=== PATIENT | female | born 1950 | race Caucasian/White ===

== ENCOUNTER 2024-03-22 10:41 | Outpatient (OUT) | payer MEDICARE, SELFPAY ==
[2024-03-22 11:09] LABS: Basophils Absolute Auto 0.1 10^3/uL (0.0-0.1); Basophils Percent Auto 0.4 % (0.2-2.0); Eosinophils Percent Auto 0.3 % (0.9-7.0); Hemoglobin 13.7 g/dL (12.0-16.0); Immature Granulocytes Abs Auto 0.05 10^3/uL (0.00-0.03); Immature Granulocytes Pct Auto 0.4 % (0.0-0.5); Lymphocytes Percent Auto 7.4 % (20.5-60.0); Mean Corpuscular HGB Conc 32.6 g/dL (29.9-35.2); Mean Corpuscular Hemoglobin 28.8 pg (26.7-34.0); Mean Corpuscular Volume 88.2 fL (81.0-99.0); Mean Platelet Volume 9.8 fL (9.5-13.5); Monocytes Absolute Auto 0.8 10^3/uL (0.3-0.8); Monocytes Percent Auto 6.4 % (1.7-12.0); Neutrophils Percent Auto 85.1 % (43.0-75.0); Platelet Count 219 10^3/uL (150-450); Red Blood Count 4.76 10^6/uL (4.20-5.40); Red Cell Distribution Width 13.3 % (11.0-15.0); White Blood Count 12.9 10^3/uL (4.0-11.0)
[2024-03-22 12:13] LABS: Alanine Aminotransferase 24 U/L (14-59); Albumin Globulin Ratio 1.2; Albumin Level 3.8 g/dL (3.4-5.0); Alkaline Phosphatase 73 U/L (46-116); Anion Gap 14.4; Aspartate Amino Transferase 13 U/L (15-37); Bilirubin Direct 0.1 mg/dL (0.0-0.2); Bilirubin Total 0.7 mg/dL (0.2-1.0); Calcium 9.4 mg/dL (8.5-10.1); Carbon Dioxide 27.4 mmol/L (21.0-32.0); Chloride 103 mmol/L (98-107); Chol HDL Ratio 2.2; Cholesterol 144 mg/dL (<=200); Estimated GFR (African America >60 (>=60); Estimated GFR (Non-African Ame >60 (>=60); Globulin 3.3 g/dL; Glucose 112 mg/dL (74-106); HDL Cholesterol 64 mg/dL (40-60); Potassium 3.8 mmol/L (3.5-5.1); Sodium 141 mmol/L (136-145); Thyroid Stimulating Hormone 1.154 uIU/mL (0.358-3.740); Total Protein 7.1 g/dL (6.4-8.2); Triglycerides 100 mg/dL (<=150)
[2024-03-22 12:41] LABS: Estimated Average Glucose 120 mg/dL; Glycohemoglobin A1C 5.8 % (4.5-6.2)
== END 2024-03-22 10:42 | disposition home or self-care (01) ==
LOC: LAB 10:47
PROVIDERS: PCP Family Medicine; Visit Provider Family Medicine
DX: E78.5 Hyperlipidemia, unspecified (principal); I10 Essential (primary) hypertension; R73.03 Prediabetes; Z79.899 Other long term (current) drug therapy; E66.9 Obesity, unspecified
CPT/HCPCS: 36415; 80048; 80061; 80076; 83036; 84443; 85025

== ENCOUNTER 2025-03-28 10:29 | Outpatient (OUT) | payer MEDICARE, SELFPAY ==
--- OUTSIDE RECORDS SUMMARY | 2025-03-28 05:58 | XMS_ITS | Continuity of Care Document ---
Author Organization [facility] Address [address] [place] [address] Phone Care Team Providers Care Stacker Straightener Name Role Phone Waldemar Mcmullen MD Primary Care Provider Waldemar Mcmullen MD Attending Provider Care Teams Patient Care Team Team Status: Active Member Role Status Dates Waldemar Mcmullen MD Primary Care Provider Active Patient Care Team Team Status: Inactive Member Role Status Dates Waldemar Mcmullen MD Primary Care Provider Active S tart: March 28, 2025 End: March 28, 2025 Waldemar Mcmullen MD Attending Provider Active Star t: March 28, 2025 End: March 28, 2025 Chief Complaint and Reason for Visit Reason for Visit Admit Date Benign essential hypertension March 28, 2025 8:31am Class 1 obesity due to exces s calories with serious comorbidity and body ma March 28, 2025 8:31am Dyslipidemia March 28, 2025 8:31am Encounter for long-term (current) use of medications March 28, 2025 8:31am Medicare annual wellness visit, subseque nt March 28, 2025 8:31am Prediabetes March 28, 2025 8:31am Allergies, Adverse Reactions, Alerts Allergen Type Severity Reaction Last Updated Verified Status No Known Allergies Allergy Unknown Septem 2024 8:56am Yes Active Social History Smoking Status Status Start Date End Date Date of Observa tion Never smoked tobacco (finding) March 28, 2025 8:57am Observation Status Observation Response Date of Response Legal Sex Female (finding) Sex Assigned At Female 1950 Problems Active Problems Medical Problem Onset Date Status Medicare annual wellness visit, subsequent Unkno wn Active Allergic rhinitis due to pollen Unknown Active Benign essential hypertension Unknown Ac tive Dyslipidemia Unknown Active Encounter for long-term (current) use of medicat ions Unknown Active Prediabetes Unknown Active Class 1 obesity due to exces s calories with serious comorbidity and body mass index (BMI) of 33.0 to 33.9 in adult Unknown Active Inactive/Resolved Problems Medical Problem Onset Date Status Class 2 severe obesity due t o excess calories with serious comorbidity and body mass index (BMI) of 38.0 to 38.9 in adult Unknown Resolved Medications Medication Status Dose Units Route Directions Qty Days St art Date Stop Date End Date Instructions Adherence Aspirin (Adult Low Dose Aspirin) 81 mg tablet,patrick yed release (DR/EC) Active 81 MG PO Daily 2024 12:00a m Complies with drug therapy Simvastatin 20 mg tablet Active 20 MG PO Daily at bedtime 2024 12:00a m Complies with drug therapy Olmesartan 20 mg tablet Active 20 MG PO Daily 2024 12:00a m Complies with drug therapy Hydrochloro thiazide 12.5 mg tablet Active 12.5 MG PO Daily 2024 12:00a m Complies with drug therapy Vital Signs Vital Reading Result Reference Range Collection Date/Time Height 58 [in_i] March 28, 2025 8:55am Weight 72.74 kg March 28, 2025 8:55am Body Temperature 98.5 [degF] 97.6-99.0 March 082024 8:55am Heart Rate 65 /min 60-100 March 28, 2025 8:55am Respiratory rate 18 /min 12-24 March 082024 8:55am BP Systolic 160 mm[Hg] 100-140 March 28, 2025 8:55am BP Diastolic 90 mm[Hg] 60-100 March 28, 2025 8:55am BMI (Body Mass Index) 33.5 kg/m2 2024 8:55am Advance Directives Advance Directive Response Recorded Date/ Time Advance Directives No March 8:26am Insurance Providers Guarantor Krystina Balderrama Address [address] [place] [address] [place] [id number] Contact Info. Home Phone: Payer Policy Id Subscriber's Name Subscriber Id Effectiv e Date Expiration Date Medicare [id number] Krystina Balderrama [id number] AARP Medicare Advantage [facility] [id number] Krystina Balderrama [id number] Encounters Encounter Location(s) Arrival/Admit Date Discharge/Depart Date Provider(s) Departed Physician/Prov ider Office Visit -[facility] [place] March 28, 2025 8:31am March 28, 2025 9:57am Waldemar Mcmullen MD Recent Diagnosis Onset Date Admit Date Benign essential hypertension Unknown Se ptember 2024 8:31am Class 1 obesity due to exces s calories with serious comorbidity and body ma Unknown March 28, 2025 8 :31am Dyslipidemia Unknown March 28, 2025 8:31am Encounter for long-term (cur rent) use of medications Unknown March 28, 2025 8:31am Medicare annual wellness visit, subsequent Unkno wn March 28, 2025 8:31am Prediabetes Unknown March 28, 2025 8:31am Assessments Diagnosis Onset Date Resolution Status Admit Date Benign essential hypertension acute March 28, 2025 8:31am Class 1 obesity due to exces s calories with serious comorbidity and body ma acute Septembe r 2024 8:31am Dyslipidemia acute March 282024 8:31am Encounter for long-term (current) use of medications acute Sep tember 2024 8:31am Medicare annual wellness visit, subsequent acute March 8:31am Prediabetes acute March 8:31am Plan of Treatment Future Tests Future scheduled test information is unavailable Pending Tests Test Name Ordered Date Scheduled Date Comprehensive Metabolic Panel March 28 9:22am Future Visits Future appointment information is unavailable Referrals to Other Providers Referral information is unavailable Future Procedures Procedure Name Ordered Date Scheduled Date A1C with Estimated Average Glu March 28 025 9:22am Complete Blood Count Auto Diff March 28 9:22am Lipid Panel March 28, 2025 9:22am Thyroid Stimulating Hormone March 28, 2025 9:22am Future Medications Future medication information is unavailable Patient Instructions Patient instructions are unavailable
--- OUTSIDE RECORDS SUMMARY | 2025-03-28 10:40 | XMS_ITS | Encounter Summary ---
Author Organization [facility] Address [address] [place] [address] Care Team Providers Care Crib Clerk Name Role Phone Waldemar Mcmullen MD Primary Care Provider [phone] Waldemar Mcmullen MD Primary Care Provider [phone] Waldemar Mcmullen MD Unavailable Encounter Details Date Type Department Care Team (Late st Contact Info) Description 06/16/2023 External Result Encounter [facility] [address] [place] [address] Waldemar Mcmullen MD [address] [place] [id number] Social History Tobacco Use Types Packs/Day Years Used Date Smoking Tobacco: Never Assessed Comments Unknown Sex and Gender Information Value Date Recorded Sex Assigned at Not on file Legal Sex Female 6:48 PM EDT Gender Identity Not on file Sexual Orientation Not on file documented as of this encounter Plan of Treatment Not on file documented as of this encounter Procedures Procedure Name Priority Date/Time Associated Diagnosis Comments BI MAMMOGRAM SCREENING TOMOSYNTHESIS BILATERAL 06/16/2023 11:32 AM EST documented in this encounter Results * Bilateral screening mammogram with tomosynthesis (06/16/2023 11:32 AM EST) Anatomical Region Laterality Modality Breast Bilateral Mammography 06/16/2023 11:3 2 AM EST Narrative 06/16/2023 11:31 AM EST THIS EXAM WAS PERFORMED AT [facility] MAMM SCREENING BILATERAL W CAD 06/13/2023 2:19 PM HISTORY: Encounter for screening mammogram for malignant neoplasm of breast TECHNIQUE: Bilateral CC and MLO 3-D tomosynthesis with C-views performed. Computer-aided detection was used in the interpretation of this examination. COMPARISON: Mammograms dating back to 05/16/2017 FINDINGS: Breast density: There are scattered areas of fibroglandular density. No suspicious calcifications, masses or architectural distortion. IMPRESSION: * No mammographic evidence of malignancy. ASSESSMENT- BI-RADS 1 - Negative Recommendation: Routine screening mammogram in 1 year Finalized by Stefany Pineda MD on 06/16/2023 11:31 AM 1 b MAMM 1 YR Procedure Note Radiology, Radiologist, MD - 07/01/2023 [facility] S[facility] BILATERAL W CAD 06/13/2023 2:19 PM HISTORY: Encounter for screening mammogram for malignant neoplasm ofbreast TECHNIQUE: Bilateral CC and MLO 3-D tomosynthesis with C-views performed.Computer-aided detection was used in the interpretation of thisexamination. COMPARISON: Mammograms dating back to 05/16/2017 FINDINGS: Breast density: There are scattered areas of fibroglandular density. No suspicious calcifications, masses or architectural distortion. IMPRESSION: * No mammographic evidence of malignancy. ASSESSMENT- BI-RADS 1 - Negative Recommendation: Routine screening mammogram in 1 year Finalized by Stefany Pineda MD on 06/16/2023 11:31 AM 1 b MAMM 1 YR Waldemar Mcmullen MD IMG BI PROCEDURES Final Result documented in this encounter Visit Diagnoses Not on filedocumented in this encounter Care Teams Crib Clerk Relationship Specialty Start Date End Date Waldemar Mcmullen MD PCP - General Family Medicine 03/07/23 08/18/23 Waldemar Mcmullen MD PCP - General Family Medicine 08/19/23 Waldemar Mcmullen MD [address] [place] [address] PCP - ACO Reach 08/13/24 documented as of this encounter
--- OUTSIDE RECORDS SUMMARY | 2025-03-28 10:40 | XMS_ITS | Clinical Summary ---
Author Organization [facility] Address [id number] [place] [address] Care Team Providers Care Manager Of Applications Development Name Role Phone Waldemar Mcmullen MD Primary Care Provider [phone] Immunizations Immunization Administration Dates Next Due COVID-19, mRNA, LNP-S, PF, 100mcg/0.5mL Dose ,09/01/2020 Family History Medical History Relation Name Comments Breast cancer Neg Hx Social History Tobacco Use Types Packs/Day Years Used Date Smoking Tobacco: Never Assessed Childcare Answer Date Recorded Childcare Unknown 12/16/2018 Employment Answer Date Recorded Employment Unknown 12/16/2018 Purpose - Life Answer Date Recorded Purpose and direction in life Unknown Comments No Sex and Gender Information Value Date Recorded Sex Assigned at Not on file Legal Sex Female 11:31 AM EDT Gender Identity Not on file Sexual Orientation Not on file Last Filed Vital Signs Vital Sign Reading Time Taken Comments Blood Pressure - - Pulse - - Temperature - - Respiratory Rate - - Oxygen Saturation - - Inhaled Oxygen Concentration - - Weight 79.4 kg (175 lb) 07/15/2024 1:09 PM EST Height 147.3 cm (4' 10 ) 07/15/2024 1:09 PM EST Body Mass Index 36.58 07/15/2024 1:09 PM EST Plan of Treatment Health Maintenance Due Date Last Done Comments Depression Screening 1962 Tobacco Screening 1962 Adult BMI Follow Up Plan 1968 DTaP,Tdap and Td Vaccines (1 - Tdap) 1969 Colonoscopy 11/27/1995 Fall Risk Screening 11/27/2015 COVID-19 Vaccine (8 - 2024-2 5 season) 2025 04/25/2024, 05/08/2023, 06/15/2022, Additional history exists Influenza Vaccine 03/07/2025 04/25/2024, , 04/16/2022, Additional history exists Adult BMI Screening 07/15/2025 07/15/2024 Zoster (Shingles) Vaccine Completed 10/07/2023, Medical Devices Not on file Insurance MEDICARE [facility] Care Teams Manager Of Applications Development Relationship Specialty Start Date End Date Waldemar Mcmullen MD PCP - General 05/16/17
--- OUTSIDE RECORDS SUMMARY | 2025-03-28 10:40 | XMS_ITS | Clinical Summary ---
Author Organization [facility] Address [address] [place] [address] Care Team Providers Care Quality Internship Name Role Phone Waldemar Mcmullen MD Primary Care Provider [phone] Waldemar Mcmullen MD Unavailable Allergies No known active allergies Medications aspirin 81 MG EC tablet Take 1 tablet by mouth in the morning. Active olmesartan (BENIcar) 20 MG tabletIndications :Essential (primary) hypertension,Nic gn essential hypertension TAKE 1 TABLET BY MOUTH EVERY DAY 90 tablet 3 5 Active simvastatin (Zocor) 20 MG tabletIndications :Hyperlipidemia, unspecified TAKE 1 TABLET BY MOUTH EVERYDAY AT BEDTIME 90 tablet 3 5 Active hydroCHLOROthiazi de (HYDRODiuril) 12.5 MG tabletIndications :Essential (primary) hypertension,Nic gn essential hypertension TAKE 1 TABLET BY MOUTH EVERY DAY 90 tablet 3 5 Active Active Problems Problem Noted Date Diagnosed Date Encounter for long-term current use of medicatio n 03/22/2024 Essential hypertension, benign 09/30/2023 Assessment & Plan (09/20/2024 9:43 AM EDT): BP elevated today and monitor PRN. Assessment & Plan (03/22/2024 10:16 AM EDT): BP okay today and monitor PRN. Assessment & Plan (09/30/2023 11:17 AM EDT): BP slightly elevated today but normal at home and monitor PRN. Allergic rhinitis due to pollen 09/30/2023 Assessment & Plan (09/20/2024 9:43 AM EDT): Symptoms controlled with medication and continue. Assessment & Plan (03/22/2024 10:16 AM EDT): Symptoms controlled with medication and continue. Assessment & Plan (09/30/2023 11:17 AM EDT): Symptoms controlled with medication and continue. Dyslipidemia 09/30/2023 Prediabetes 09/30/2023 Class 2 severe obesity due t o excess calories with serious comorbidity and body mass index (BMI) of 38.0 to 38.9 in adult 09/30/2023 Assessment & Plan (09/20/2024 9:43 AM EDT): Discussed proper diet and regular aerobic exercise. Recommend Weight Watchers and need to limit calories and smaller portions. Need to increase activity and regular aerobic exercise several days a week for 30 minutes at a time. Assessment & Plan (09/30/2023 11:17 AM EDT): Discussed proper diet and regular aerobic exercise. Recommend Weight Watchers and need to limit calories and smaller portions. Need to increase activity and regular aerobic exercise several days a week for 30 minutes at a time. Encounters Date Type Department Care Team Description 02/19/2025 Refill [facility] [address] [place] [address] Waldemar Mcmullen MD Essential (primary) hypertension ; Benign essential hypertension ; Hyperlipidemia, unspecified from Last 3 Months Family History Medical History Relation Name Comments Uterine cancer Mother Relation Name Status Comments Mother Social History Tobacco Use Types Packs/Day Years Used Date Smoking Tobacco: Never Comments Unknown Sex and Gender Information Value Date Recorded Sex Assigned at Not on file Legal Sex Female 6:48 PM EDT Gender Identity Not on file Sexual Orientation Not on file Last Filed Vital Signs Vital Sign Reading Time Taken Comments Blood Pressure 180/90 09/20/2024 9:17 AM EDT Pulse 65 09/20/2024 9:17 AM EDT Temperature 36.3 C (97.3 F) 09/20/2024 9:17 AM EDT Respiratory Rate 20 09/20/2024 9:17 AM EDT Oxygen Saturation 98% 09/20/2024 9:17 AM EDT Inhaled Oxygen Concentration - - Weight 77.1 kg (170 lb) 09/20/2024 9:17 AM EDT Height 142.2 cm (4' 8 ) 09/20/2024 9:17 AM EDT Body Mass Index 38.11 09/20/2024 9:17 AM EDT Plan of Treatment Health Maintenance Due Date Last Done Comments CT Colonography 1950 Colonoscopy 1950 FIT-DNA 1950 FIT 1950 FOBT 1950 Medicare Annual Wellness (AWV) 1950 Sigmoidoscopy 1950 Influenza Vaccine (#1) 2025 , 05/08/2023, 04/16/2022, Additional history exists Mammogram 07/15/2025 07/15/2024, 03/2025, 06/16/2023, Additional history exists Colorectal Cancer Screening 09/20/2025 Postponed from 1950 (Patient Refused) Pneumococcal Vaccine: 65+ Years Completed 06/18/2018, 06/09/2017 Procedures Procedure Name Priority Date/Time Associated Diagnosis Comments BI MAMMOGRAM SCREENING TOMOSYNTHESIS BILATERAL 07/15/2024 1:36 PM EST from Last 3 Months or Most Recently Relevant to Health Maintenance Results * Bilateral screening mammogram with tomosynthesis (07/15/2024 1:36 PM EST) Anatomical Region Laterality Modality Breast Bilateral Mammography 07/15/2024 1:36 PM EST Narrative 07/15/2024 1:35 PM EST THIS EXAM WAS PERFORMED AT [facility] [place] 1950 [id number] EXAM: MAMM SCREENING BILATERAL W CAD, 07/15/2024 1:08 PM CLINICAL INDICATIONS: Screening, Visit for screening mammogram COMPARISON: 06/13/2023 and earlier TECHNIQUE: Bilateral digital tomosynthesis MLO and CC views of the breasts were obtained, with creation of synthetic 2D views. Computer aided detection was utilized. FINDINGS: There are scattered areas of fibroglandular density. There are no suspicious masses, calcifications, or areas of architectural distortion. IMPRESSION: No mammographic evidence of malignancy. BI-RADS: BI-RADS 1 - Negative RECOMMENDATION: Routine screening mammogram in 1 year. RISK ASSESSMENT: TC Lifetime risk: 4.95%. The patient's reported personal and family medical history was used calculate their Tyrer-Cuzick lifetime risk of malignancy. Scores less than 20% are not considered high risk per ACR guidelines and patient should continue with the above recommendation. Finalized by Giovanni Castrejon MD on 07/15/2024 1:35 PM 1 b MAMM 1 YR [facility] Accredited Performing Facility: [facility] - Mammography/DEXA Imaging [address] [id number] Procedure Note Radiology, Radiologist, MD - 07/15/2024 THIS EXAM WAS PERFORMED AT [facility] 1950 [id number] EXAM: MAMM SCREENING BILATERAL W CAD, 07/15/2024 1:08 PM CLINICAL INDICATIONS: Screening, Visit for screening mammogram COMPARISON: 06/13/2023 and earlier TECHNIQUE: Bilateral digital tomosynthesis MLO and CC views of the breastswere obtained, with creation of synthetic 2D views. Computer aideddetection was utilized. FINDINGS: There are scattered areas of fibroglandular density. There are no suspicious masses, calcifications, or areas of architecturaldistortion. IMPRESSION: No mammographic evidence of malignancy. BI-RADS: BI-RADS 1 - Negative RECOMMENDATION: Routine screening mammogram in 1 year. RISK ASSESSMENT: TC Lifetime risk: 4.95%. The patient's reported personal and family medical history was usedcalculate their Tyrer-Cuzick lifetime risk of malignancy. Scores less than20% are not considered high risk per ACR guidelines and patient shouldcontinue with the above recommendation. Finalized by Giovanni Castrejon MD on 07/15/2024 1:35 PM 1 b MAMM 1 YR [facility] Accredited Performing Facility: [facility] - Mammography/DEXA Imaging [address] [place] [address] Waldemar Mcmullen MD IMG BI PROCEDURES Final Result from Last 3 Months or Most Recently Relevant to Health Maintenance Insurance MEDICARE [facility] Care Teams Quality Internship Relationship Specialty Start Date End Date Waldemar Mcmullen MD PCP - General Family Medicine 08/19/23 Waldemar Mcmullen MD [address] [place] [address] PCP - ACO Reach 08/13/24
--- OUTSIDE RECORDS SUMMARY | 2025-03-28 10:40 | XMS_ITS | Encounter Summary ---
Author Organization [facility] Address [address] [place] [address] Care Team Providers Care Craft Artist Name Role Phone Waldemar Mcmullen MD Primary Care Provider [phone] Waldemar Mcmullen MD Primary Care Provider [phone] Waldemar Mcmullen MD Unavailable Encounter Details Date Type Department Care Team (Late st Contact Info) Description 08/11/2023 Orders Only [facility] [address] [place] [address] Waldemar Mcmullen MD [address] [place] [address] Social History Tobacco Use Types Packs/Day Years [...] Procedure Name Priority Date/Time Associated Diagnosis Comments MAMM BILATERAL DIAG W/CAD (D) Routine 06/13/2023 12:32 PM EST documented in this encounter Results * MAMM BILATERAL DIAG W/CAD (D) (06/13/2023 12:32 PM EST) Anatomical Region Laterality Modality Radiographic Graciela ging Waldemar Mcmullen MD IMG XR PROCEDURES Final Result documented in this encounter Visit Diagnoses Not on filedocumented in this encounter Care Teams Craft Artist Relationship Specialty Start Date End Date Waldemar Mcmullen MD PCP - General Family Medicine 03/07/23 08/18/23 Waldemar Mcmullen MD PCP - General Family Medicine 08/19/23 Waldemar Mcmullen MD [address] [place] [address] PCP - ACO Reach 08/13/24 documented as of this encounter
--- OUTSIDE RECORDS SUMMARY | 2025-03-28 10:40 | XMS_ITS | Encounter Summary ---
Author Organization [facility] Address [address] [place] [address] Care Team Providers Care Weight Loss Physician Name Role Phone Waldemar Mcmullen MD Primary Care Provider [phone] Waldemar Mcmullen MD Unavailable Encounter Details Date Type Department Care Team (Late st Contact Info) Description 07/15/2024 External Result Encounter [facility] [address] [place] [address] Waldemar Mcmullen MD [address] [place] [address] Social History Tobacco Use Types Packs/Day Years [...] SCREENING TOMOSYNTHESIS BILATERAL 07/15/2024 1:36 PM EST documented in this encounter Results * Bilateral screening mammogram with tomosynthesis (07/15/2024 1:36 PM EST) Anatomical Region Laterality Modality Breast Bilateral Mammography 07/15/2024 1:36 PM EST Narrative 07/15/2024 1:35 PM EST THIS EXAM WAS PERFORMED AT [facility] [place] [place] 1950 [id number] EXAM: MAMM SCREENING BILATERAL W CAD, 07/15/2024 [...] 1:35 PM 1 b MAMM 1 YR FDA Accredited Performing Facility: [facility] - Mammography/DEXA Imaging [address] [facility] [id number] Procedure Note Radiology, Radiologist, MD - 07/15/2024 THIS EXAM WAS PERFORMED AT [facility] 1950 [id number] EXAM: MAMM SCREENING BILATERAL W CAD, 07/15/2024 [...] 1:35 PM 1 b MAMM 1 YR FDA Accredited Performing Facility: [facility] - Mammography/DEXA Imaging [address] [facility] [address] Waldemar Mcmullen MD IMG BI PROCEDURES Final Result documented in this encounter Visit Diagnoses Not on filedocumented in this encounter Care Teams Weight Loss Physician Relationship Specialty Start Date End Date Waldemar Mcmullen MD PCP - General Family Medicine 08/19/23 Waldemar Mcmullen MD [address] [place] [address] PCP - ACO Reach 08/13/24 documented as of this encounter
--- OUTSIDE RECORDS SUMMARY | 2025-03-28 10:42 | XMS_ITS | CCD ---
Author Organization [facility] Care Team Providers Care Loom Fixer Supervisor Name Role Phone DR WALDEMAR GUSTAFSON Consulting Unavailable SJ, DR WALDEMAR Baker Attending Unavailable SJ, DR WALDEMAR Baker Admitting Unavailable SJ, DR WALDEMAR Baker Primary Care Unavailable Waldemar Gustafson MD Primary Care Provider WALDEMAR GUSTAFSON Referring Unavailable WALDEMAR GUSTAFSON Primary Care Unavailable WALDEMAR GUSTAFSON Attending Unavailable WALDEMAR GUSTAFSON Attending Unavailable SJ, WALDEMAR Attending Unavailable Waldemar Gustafson MD Primary Care Provider Waldemar Gustafson MD Attending Provider Medications Current Medications Medication Drug Class(es) Dates Sig (Normalized) Sig (Original) aspirin 81 mg delayed release oral tablet (5 sources) Platelet Aggregation Inhibitor, Nonsteroidal Anti-inflammatory Drug Start: 03-25-2025 Aspirin (Adult Low Dose Aspirin) 81 mg tablet,delayed release (DR/EC) Active 81 MG PO Daily March 25, 2025 12:00am Complies with drug therapy take 1 tablet by mouth in the mo rning aspirin 81 MG EC tablet Take 1 tablet by mouth in the morning. Active hydroCHLOROthiazide 12.5 mg oral tablet (5 sources) Thiazide Diuretic Start: 03-25-2025 take 1 tablet by mouth once daily Hydrochlorothiazide 12.5 mg tablet Active 12.5 MG PO Daily March 25, 2025 12:00am Complies with drug therapy Start: 03-01-2024 take 1 tablet by bharat th once daily hydroCHLOROthiazide (HYDRODiuril) 12.5 MG tablet Indications: Essential (primary) hypertension (CMS/HCC) , Benign essential hypertension (CMS/HCC) TAKE 1 TABLET BY MOUTH EVERY DAY 90 tablet 3 03/01/2024 Active olmesartan medoxomil 20 mg oral tablet (5 sources) Angiotensin 2 Receptor Tami Start: 03-25-2025 take 1 tablet by mouth once daily Olmesartan 20 mg tablet Active 20 MG PO Daily March 25, 2025 12:00am Complies with drug therapy Start: 03-01-2024 take 1 tablet by bharat th once daily olmesartan (BENIcar) 20 MG tablet Indications: Essential (primary) hypertension (CMS/HCC) , Benign essential hypertension (CMS/HCC) TAKE 1 TABLET BY MOUTH EVERY DAY 90 tablet 3 03/01/2024 Active simvastatin 20 mg oral tablet (5 sources) HMG-CoA Reductase Inhibitor Start: 03-25-2025 take 1 tablet by mouth once daily at bedtime Simvastatin 20 mg tablet Active 20 MG PO Daily at bedtime March 25, 2025 12:00am Complies with drug therapy Start: 03-01-2024 take 1 tablet by bharat th once daily at bedtime simvastatin (Zocor) 20 MG tablet Indications: Hyperlipidemia, unspecified (CMS/HCC) TAKE 1 TABLET BY MOUTH EVERYDAY AT BEDTIME 90 tablet 3 03/01/2024 Active Problems Problem Classification Problem Date Documented Da te Episodic/Chronic Diabetes mellitus without complication (9 sources) Prediabetes; Translations: [Prediabetes] Onset: 10-11-2022 03-22-2024 Episodic Disorders of lipid metabolism (9 sources) Hyperlipidemia, unspecified; Translations: [Dyslipidemia] Onset: 10-11-2022 03-22-2024 Chronic Essential hypertension (12 sources) Essential (primary) hypertension; Translations: [Benign essential hypertension] Onset: 10-03-2022 Chronic Other aftercare (1 source) Other adjunct faculty for medical terminology (current) drug therapy; Translations: [OTH LONG-TERM CURRENT DRUG THERAPY] Onset: 10-11-2022 Episodic Other aftercare (5 sources) Patient encounter status; Translations: [Other nursing home (current) drug therapy] Onset: 03-22-2024 03-22-2024 Episodic Other aftercare (2 sources) Long-term current use of drug therapy; Translations: [Other nursing home (current) drug therapy] 03-28-2025 Episodic Other nutritional; endocrine; and metabolic disorders (1 source) Body mass index (BMI) 40.0-44.9, adult; Translations: [BODY MASS INDEX BMI 40.0-44.9 ADULT] Onset: 04-07-2023 Chronic Other nutritional; endocrine; and metabolic disorders (1 source) Morbid (severe) obesity due to excess calories; Translations: [MORBID SEVERE OBES D/T EXCESS RADHA] Onset: 10-11-2022 Chronic Other nutritional; endocrine; and metabolic disorders (8 sources) Body mass index 30+ - obesity; Translations: [Obesity, unspecified] Onset: 09-30-2023 03-22-2024 Chronic Other nutritional; endocrine; and metabolic disorders (1 source) Severe obesity; Translations: [Class 2 severe obesity due to excess calories with serious comorbidity and body mass] 03-28-2025 Chronic Other nutritional; endocrine; and metabolic disorders (2 sources) Obesity caused by energy imbalance; Translations: [Class 1 obesity due to excess calories with serious comorbidity and body mass index (] 03-28-2025 Chronic Other screening for suspected conditions (not mental disorders or infectious disease) (1 source) Encounter for screening mammogram for malignant neoplasm of breast; Translations: [Encounter for screening mammogram for malignant neoplasm of breast] Onset: 07-15-2024 Episodic Other upper respiratory disease (7 sources) Allergic rhinitis due to pollen; Translations: [Allergic rhinitis due to pollen] Onset: 09-30-2023 03-22-2024 Chronic Results Test Name Value Interpretation Reference Range Facility 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 6 Finalized by Giovanni Castrejon MD on 07/15/2024 1:35 PM 1 b MAMM 1 YR Normal [facility] ALL CBC WITH AUTO DIFFon BASOPHILS ABSOLUTE AUTO 0.1 [facility] Basophils/100 WBC (Bld) 0.4 % 0.2 - 2.0 % [facility] Eosinophils/100 WBC (Bld) 0.3 % Low 0.9 - 7.0 % [facility] Erythrocyte distribution width (RBC) [Ratio] 13.3 % 11.0 - 15.0 % [facility] Hematocrit (Bld) [Volume fraction] 42.0 % 36.0 - 48.0 % [facility] Hemoglobin (Bld) [Mass/Vol] 13.7 g/dL 12.0 - 16.0 g/dL [facility] IMMATURE GRANULOCYTES ABS AUTO 0.05 High [facility] Immature granulocytes/100 WBC (Bld) 0.4 % 0.0 - 0.5 % [facility] Interpretation and review of laboratory results Abnormal [facility] LYMPHOCYTES ABSOLUTE AUTO 1.0 Low [facility] Lymphocytes/100 WBC (Bld) 7.4 % Low 20.5 - 60.0 % [facility] MCH (RBC) [Entitic mass] 28.8 pg 26.7 - 34.0 pg [facility] MCHC (RBC) [Mass/Vol] 32.6 g/dL 29.9 - 35.2 g/dL [facility] MCV (RBC) [Entitic vol] 88.2 fL 81.0 - 99.0 fL [facility] MONOCYTES ABSOLUTE AUTO 0.8 [facility] Monocytes/100 WBC (Bld) 6.4 % 1.7 - 12.0 % [facility] NEUTROPHILS ABSOLUTE AUTO 11.0 High [facility] Neutrophils/100 WBC (Bld) 85.1 % High 43.0 - 75.0 % [facility] Platelet mean volume (Bld) [Entitic vol] 9.8 fL 9.5 - 13.5 fL [facility] EO # 0.0 [facility] PLT 219 [facility] RBC 4.76 [facility] WBC 12.9 High [facility] CBC AUTO DIFFon 10-03-2022 BASO # 0.1 103/ul Normal 0.0-0.1 [facility] Comment on above: Performed By: #### C BC #### [facility] [address] [place] [address] Dr. Jaky Avelar Basophils/100 WBC (Bld) 0.8 % Normal 0.2-2.0 [facility] Comment on above: Performed By: #### C BC #### [facility] [address] [place] [address] Dr. Jaky Avelar EO # 0.1 103/ul Normal 0.0-0.7 [facility] Comment on above: Performed By: #### C BC #### [facility] [address] [place] [address] Dr. Jaky Avelar Eosinophils/100 WBC (Bld) 1.2 % Normal 0.9-7.0 [facility] Comment on above: Performed By: #### C BC #### [facility] [address] [place] [address] Dr. Jaky Avelar Erythrocyte distribution width (RBC) [Ratio] 13.4 % Normal 11.0-15.0 [facility] Comment on above: Performed By: #### C BC #### [facility] [address] [place] [address] Dr. Jaky Avelar Hematocrit (Bld) [Volume fraction] 43.0 % Normal 36.0-48.0 [facility] Comment on above: Performed By: #### C BC #### [facility] [address] [place] [address] Dr. Jaky Avelar Hemoglobin (Bld) [Mass/Vol] 13.8 g/dL Normal 12.0-16.0 [facility] Comment on above: Performed By: #### C BC #### [facility] [address] [place] [address] Dr. Jaky Avelar IG # 0.04 10e3/ul Critically high 0.00-0.03 [facility] Comment on above: Performed By: #### C BC #### [facility] [address] [place] [address] Dr. Jaky Avelar IG % 0.5 % Normal 0.0-0.5 [facility] Comment on above: Performed By: #### C BC #### [facility] [address] [place] [address] Dr. Jaky Avelar LYMPH # 1.2 103/ul Normal 1.2-3.8 [facility] Comment on above: Performed By: #### C BC #### [facility] [address] [place] [address] Dr. Jaky Avelar Lymphocytes/100 WBC (Bld) 14.5 % Critically low 20.5-60.0 [facility] Comment on above: Performed By: #### C BC #### [facility] [address] [place] [address] Dr. Jaky Avelar MANUAL DIFF REQ NO Normal [facility] Comment on above: Performed By: #### C BC #### [facility] [address] [place] [address] Dr. Jaky Avelar MCH (RBC) [Entitic mass] 28.1 pg Normal 26.7-34.0 [facility] Comment on above: Performed By: #### C BC #### [facility] [address] [place] [address] Dr. Jaky Avelar MCHC (RBC) [Mass/Vol] 32.1 g/dL Normal 29.9-35.2 [facility] Comment on above: Performed By: #### C BC #### [facility] [address] [place] [address] Dr. Jaky Avelar MCV (RBC) [Entitic vol] 87.6 fL Normal 81.0-99.0 [facility] Comment on above: Performed By: #### C BC #### [facility] [address] [place] [address] Dr. Jaky Avelar MONO # 0.6 103/ul Normal 0.3-0.8 [facility] Comment on above: Performed By: #### C BC #### [facility] [address] [place] [address] Dr. Jaky Avelar Monocytes/100 WBC (Bld) 6.6 % Normal 1.7-12.0 [facility] Comment on above: Performed By: #### C BC #### [facility] [address] [place] [address] Dr. Jaky Avelar NEUT # 6.5 103/ul Normal 1.4-6.5 [facility] Comment on above: Performed By: #### C BC #### [facility] [address] [place] [address] Dr. Jaky Avelra Neutrophils/100 WBC (Bld) 76.4 % Critically high 43.0-75.0 [facility] Comment on above: Performed By: #### C BC #### [facility] [address] [place] [address] Dr. Jaky Avelar Platelet mean volume (Bld) [Entitic vol] 10.2 fL Normal 9.5-13.5 [facility] Comment on above: Performed By: #### C BC #### [facility] [address] [place] [address] Dr. Jaky Avelar PLT 234 103/ul Normal 150-450 [facility] Comment on above: Performed By: #### C BC #### [facility] [address] [place] [address] Dr. Jaky Avelar RBC 4.91 106/ul Normal 4.20-5.40 [facility] Comment on above: Performed By: #### C BC #### [facility] [address] [place] [address] Dr. Jaky Avelar WBC 8.5 103/ul Normal 4.0-11.0 [facility] Comment on above: Performed By: #### C BC #### [facility] [address] [place] [address] Dr. Jaky Avelar GLYCOHEMOGLOBIN A1Con 2022 ADA RECOMMENDATION SEE BELOW Normal [facility] [place] Comment on above: Result Comment: ADA RECOMMENDED LIMIT 4.0 - 6.0 ADA THERAPEUTIC TARGET < 7.0 ACTION SUGGESTED > 7.0 Performed By: #### A 1C #### [facility] [address] [place] [address] Dr. Jaky Avelar Glucose [Mass/Vol] 126 mg/dL Normal [facility] [place] Comment on above: Performed By: #### A 1C #### [facility] [address] [address] [address] Jaky Avelar HbA1c (Bld) [Mass fraction] 6.0 % Normal 4.5-6.2 [facility] Comment on above: Performed By: #### A 1C #### [facility] [address] [address] [address] Jaky Avelar LIPID PROFILEon 10-03-2022 CHOL-HDL RATIO NORM SEE BELOW Normal [facility] Comment on above: Result Comment: 3.3 - 4.4 LOW RISK 4.4 - 7.1 AVERAGE RISK 7.1 - 11.0 MODERATE RISK >11.0 HIGH RISK Performed By: #### L IVER, LIPID, TSH, BMP #### [facility] [address] [place] [address] Dr. Jaky Avelar Cholesterol [Mass/Vol] 147 mg/dL Normal <=200 [facility] Comment on above: Performed By: #### L IVER, LIPID, TSH, BMP #### [facility] [address] [address] [address] Jaky Avelar Cholesterol in HDL [Mass/Vol] 54 mg/dL Normal 40-60 [facility] Comment on above: Performed By: #### L IVER, LIPID, TSH, BMP #### [facility] [address] [address] [address] Jaky Avelar Cholesterol in LDL [Mass/Vol] 63.6 mg/dL Normal [facility] Comment on above: Performed By: #### L IVER, LIPID, TSH, BMP #### [facility] [address] [address] [address] Jaky Avelar Cholesterol.total/Cho lesterol in HDL [Mass ratio] 2.7 {ratio} Normal [facility] Comment on above: Performed By: #### L IVER, LIPID, TSH, BMP #### [facility] [address] [address] [address] Jaky Avelar HDL NORMAL > or = 60 mg/dl - LOW CARDIOVASCULAR RISK <40 mg/dl - HIGH CARDIOVASCULAR RISK Normal [facility] Comment on above: Performed By: #### L IVER, LIPID, TSH, BMP #### [facility] [address] [address] [address] Jaky Avelar LDL CALC NORMAL SEE BELOW Normal [facility] Comment on above: Result Comment: <100 mg/dl OPTIMAL 100 - 129 mg/dl NEAR OR ABOVE OPTIMAL 130 - 159 mg/dl BORDERLINE HIGH 160 - 189 mg/dl HIGH >190 mg/dl VERY HIGH Performed By: #### L IVER, LIPID, TSH, BMP #### [facility] [address] [address] [address] Jaky Avelar Triglyceride [Mass/Vol] 147 mg/dL Normal <=150 [facility] Comment on above: Performed By: #### L IVER, LIPID, TSH, BMP #### [facility] [address] [place] [address] Dr. Jaky Avelar VLDL CALC 29.4 mg/dL Normal [facility] Comment on above: Performed By: #### L IVER, LIPID, TSH, BMP #### [facility] [address] [address] [address] Jaky Avelar LIVER PROFILEon 10-03-2022 Albumin [Mass/Vol] 3.7 g/dL Normal 3.4-5.0 [facility] [place] Comment on above: Performed By: #### L IVER, LIPID, TSH, BMP #### [facility] [address] [address] [address] Jaky Avelar Albumin/Globulin [Mass ratio] 1.0 {ratio} Normal [facility] Comment on above: Performed By: #### L IVER, LIPID, TSH, BMP #### [facility] [address] [address] [address] Jaky Avelar ALP [Catalytic activity/Vol] 89 U/L Normal 46-116 [facility] Comment on above: Performed By: #### L IVER, LIPID, TSH, BMP #### [facility] [address] [address] [address] Jaky Avelar ALT [Catalytic activity/Vol] 37 U/L Normal 14-59 [facility] Comment on above: Performed By: #### L IVER, LIPID, TSH, BMP #### [facility] [address] [place] [address] Dr. Jaky Avelar AST [Catalytic activity/Vol] 25 U/L Normal 15-37 [facility] Comment on above: Performed By: #### L IVER, LIPID, TSH, BMP #### [facility] [address] [place] [address] Dr. Jaky Avelar BILI, CONJUGATED 0.1 mg/dL Normal 0.0-0.2 [facility] Comment on above: Performed By: #### L IVER, LIPID, TSH, BMP #### [facility] [address] [place] [address] Dr. Jaky Avelar Bilirubin [Mass/Vol] 0.4 mg/dL Normal 0.2-1.0 [facility] Comment on above: Performed By: #### L IVER, LIPID, TSH, BMP #### [facility] [address] [place] [address] Dr. Jaky Avelar Globulin (S) [Mass/Vol] 3.6 g/dL Normal [facility] Comment on above: Performed By: #### L IVER, LIPID, TSH, BMP #### [facility] [address] [place] [address] Dr. Jaky Avelar Protein [Mass/Vol] 7.3 g/dL Normal 6.4-8.2 [facility] [place] Comment on above: Performed By: #### L IVER, LIPID, TSH, BMP #### [facility] [address] [place] [address] Dr. Jaky Avelar PROF CHEM 8 (BAS METB)on Anion gap [Moles/Vol] 15.5 mmol/L Normal [facility] Comment on above: Performed By: #### L IVER, LIPID, TSH, BMP #### [facility] [address] [place] [address] Dr. Jaky Avelar Calcium [Mass/Vol] 9.4 mg/dL Normal 8.5-10.1 [facility] [place] Comment on above: Performed By: #### L IVER, LIPID, TSH, BMP #### [facility] [address] [address] [address] Jaky Avelar Chloride [Moles/Vol] 104 mmol/L Normal 98-107 [facility] Comment on above: Performed By: #### L IVER, LIPID, TSH, BMP #### [facility] [address] [address] [address] Jaky Avelar CO2 [Moles/Vol] 24.4 mmol/L Normal 21.0-32.0 [facility] Comment on above: Performed By: #### L IVER, LIPID, TSH, BMP #### [facility] [address] [place] [address] Dr. Jaky Avelar Creatinine [Mass/Vol] 0.87 mg/dL Normal 0.55-1.02 [facility] Comment on above: Performed By: #### L IVER, LIPID, TSH, BMP #### [facility] [address] [address] [address] Jaky Avelar EGFR-AF GUATEMALAN >60 Normal >=60 [facility] Comment on above: Performed By: #### L IVER, LIPID, TSH, BMP #### [facility] [address] [place] [address] Dr. Jaky Avelar EGFR-NON AF GUATEMALAN >60 Normal >=60 [facility] Comment on above: Performed By: #### L IVER, LIPID, TSH, BMP #### [facility] [address] [address] [address] Jaky Avelar Glucose [Mass/Vol] 117 mg/dL Critically high 74-106 [facility] Comment on above: Performed By: #### L IVER, LIPID, TSH, BMP #### [facility] [address] [place] [address] Dr. Jaky Avelar Potassium [Moles/Vol] 3.9 mmol/L Normal 3.5-5.1 [facility] Comment on above: Performed By: #### L IVER, LIPID, TSH, BMP #### [facility] [address] [place] [address] Dr. Jaky Avelar Sodium [Moles/Vol] 140 mmol/L Normal 136-145 [facility] [place] Comment on above: Performed By: #### L IVER, LIPID, TSH, BMP #### [facility] [address] [address] [address] Jkay Avelar Urea nitrogen [Mass/Vol] 17.0 mg/dL Normal 7.0-18.0 [facility] Comment on above: Performed By: #### L IVER, LIPID, TSH, BMP #### [facility] [address] [address] [address] Jaky Avelar Urea nitrogen/Creatinine [Mass ratio] 19.5 mg/mg Normal [facility] Comment on above: Performed By: #### L IVER, LIPID, TSH, BMP #### [facility] [address] [address] [address] Jaky Avelar TSHon 10-03-2022 TSH 1.811 uIU/mL Normal 0.358-3.740 [facility] Comment on above: Performed By: #### L IVER, LIPID, TSH, BMP #### [facility] [address] [address] [address] Jaky Avelar Vital Signs Date Time Vital Sign Value Performing Clinician Facility 03-28-2025 08:55-0400 Body height 147.32 cm Waldemar Gustafson MD Work Phone: [facility] 03-28-2025 08:55-0400 Body mass index (BMI) [Ratio] 33.5 kg/m2 Waldemar Gustafson MD Work Phone: [facility] 03-28-2025 08:55-0400 Body temperature 98.5 [degF] Waldemar Gustafson MD Work Phone: [facility] 03-28-2025 08:55-0400 Body weight 72.74 kg Waldemar Gustafson MD Work Phone: [facility] 03-28-2025 08:55-0400 Diastolic blood pressure 90 mm[Hg] Waldemar Gustafson MD Work Phone: [facility] 03-28-2025 08:55-0400 Heart rate 65 /min Waldemar Gustafson MD Work Phone: [facility] 03-28-2025 08:55-0400 Respiratory rate 18 /min Waldemar Gustafson MD Work Phone: [facility] 03-28-2025 08:55-0400 Systolic blood pressure 160 mm[Hg] Waldemar Gustafson MD Work Phone: [facility] 03-22-2024 09:36-0400 Body mass index (BMI) [Ratio] 38.34 kg/m2 Waldemar Gustafson MD Work Phone: [facility] 03-22-2024 09:36-0400 Body temperature 97.5 [degF] Waldemar Gustafson MD Work Phone: [facility] 03-22-2024 09:36-0400 Body weight 77.56 kg Waldemar Gustafson MD Work Phone: [facility] 03-22-2024 09:36-0400 Diastolic blood pressure 80 mm[Hg] Waldemar Gustafson MD Work Phone: [facility] 03-22-2024 09:36-0400 Heart rate 76 /min Waldemar Gustafson MD Work Phone: [facility] 03-22-2024 09:36-0400 Respiratory rate 16 /min Waldemar Gustafson MD Work Phone: [facility] 03-22-2024 09:36-0400 SaO2% (BldA) [Mass fraction] 98 % Waldemar Gustafson MD Work Phone: [facility] 03-22-2024 09:36-0400 Systolic blood pressure 140 mm[Hg] Waldemar Gustafson MD Work Phone: [facility] Healthcare Encounters Encounter Date Encounter Type Care Provider Facility Start: 03-28-2025 End: 03-28-2025 ambulatory Waldemar Gustafson MD Work Phone: [facility] Work Phone: Start: 03-28-2025 End: 03-28-2025 Patient encounter procedure Waldemar Gustafson MD [facility] Work Phone: Start: 09-20-2024 End: 09-20-2024 ambulatory WALDEMAR GUSTAFSON Not Available Start: 07-15-2024 End: 07-15-2024 ambulatory WALDEMAR GUSTAFSON [facility] Start: 03-22-2024 End: 03-22-2024 Bamboo flowsheet Waldemar Gustafson MD Work Phone: [facility] Start: 03-22-2024 End: 03-22-2024 [facility] flowsheet Waldemar Gustafson MD Work Phone: [facility] Start: 03-22-2024 End: 03-22-2024 [facility] Result Encounter Waldeamr Gustafson MD Work Phone: [facility] Unsolicited Start: 03-22-2024 End: 03-22-2024 Office outpatient visit 15 minutes Waldemar Gustafson MD Work Phone: [facility] Comment on above: Essential hypertensi on, benign (CMS/HCC) (Primary Dx); Seasonal allergic rhinitis due to pollen; Obesity (BMI 30-39.9); Dyslipidemia (CMS/HCC); Encounter for long-term current use of medication; Prediabetes; Body mass index (BMI) 38.0-38.9, adult Start: 03-22-2024 End: 03-22-2024 ambulatory WALDEMAR GUSTAFSON Not Available Start: 09-30-2023 End: 09-30-2023 ambulatory WALDEMAR GUSTAFSON Not Available Start: 10-03-2022 End: 10-04-[address] WALDEMAR GUSTAFSON Facility:H1 Procedures Date Procedure Procedure Detail Performing Clinician Start: 03-22-2024 ALL CBC WITH AUTO DIFF Waldemar Gustafson MD Work Phone: Start: 06-16-2023 Mammography Waldemar matias MD Work Phone: Plan of Treatment Date Care Activity Detail Author Start: 09-20-2024 End: 09-20-2024 Patient encounter procedure 09/20/2024 9:00 AM EDT Office Visit [facility] [address] [place] [address] Waldemar Gustafson MD [address] [place] [address] [facility] Start: 09-06-2024 Screening for malign ant neoplasm of colon Colorectal Cancer Screening [facility] Comment on above: Postponed from 11/26 (Patient Refused) Start: 06-16-2024 Screening for malign ant neoplasm of breast Mammogram [facility] Start: 03-22-2024 End: 03-22-2025 Basic metabolic 1998 panel - Serum or Plasma Basic metabolic panel Lab Routine Essential hypertension, benign (CMS/HCC) Expected: 03/22/2024 (Approximate), Expires: 03/22/2025 [facility] Comment on above: Expected: 03/22/2024 (Approximate), Expires: 03/22/2025 Start: 03-22-2024 End: 03-22-2025 CBC W Auto Differential panel - Blood CBC and differential Lab Routine Encounter for long-term current use of medication Expected: 03/22/2024 (Approximate), Expires: 03/22/2025 [facility] Comment on above: Expected: 03/22/2024 (Approximate), Expires: 03/22/2025 Start: 03-22-2024 End: 03-22-2025 Hemoglobin A1c/Hemoglobin.total in Blood Hemoglobin A1c Lab Routine Prediabetes Expected: 03/22/2024 (Approximate), Expires: 03/22/2025 [facility] [facility] Work Phone: Comment on above: Expected: 03/22/2024 (Approximate), Expires: 03/22/2025 Start: 03-22-2024 End: 03-22-2025 Hepatic function 2000 panel - Serum or Plasma Hepatic function panel Lab Routine Encounter for long-term current use of medication Expected: 03/22/2024 (Approximate), Expires: 03/22/2025 [facility] Comment on above: Expected: 03/22/2024 (Approximate), Expires: 03/22/2025 Start: 03-22-2024 End: 03-22-2025 Lipid 1996 panel - Serum or Plasma Lipid panel Lab Routine Dyslipidemia (CMS/HCC) Expected: 03/22/2024 (Approximate), Expires: 03/22/2025 [facility] Comment on above: Expected: 03/22/2024 (Approximate), Expires: 03/22/2025 Start: 03-22-2024 End: 03-22-2025 Thyrotropin [Units/volume] in Serum or Plasma TSH Lab Routine Obesity (BMI 30-39.9) Expected: 03/22/2024 (Approximate), Expires: 03/22/2025 [facility] Comment on above: Expected: 03/22/2024 (Approximate), Expires: 03/22/2025 Start: 03-22-2024 End: 03-22-2024 Patient encounter procedure 03/22/2024 9:30 AM EDT Office Visit [facility] [address] [place] [phone] Waldemar Gustafson MD [address] [place] [address] Arrived [facility] Comment on above: Arrived Start: 03-07-2024 Influenza vaccination Influenza Vacc ine (#1) [facility] Start: 1950 Medicare Annual Well ness (AWV) Medicare Annual Wellness (AWV) [facility] Start: 1950 Screening for malign ant neoplasm of colon [facility] Comprehensive metabo lic 2000 panel - Serum or Plasma [facility] Immunizations Immunization Date Immunization Notes Care Provider Fa cility 05-08-2023 influenza virus vacc ine, unspecified formulation Waldemar Gustafson MD Work Phone: [facility] Payers Date Payer Category Payer Unknown AARP AARP [id number] 2022-Present [address] [place] [address] [id number] 2015 Medicare MEDICARE MEDICAR E PART B [id number] 2015-[place] [address] Medicare [id number] 1959 Medicare [id number] 1959 Unknown [id number] 1950 Unknown [id number] 1950 Unknown [id number] 1950 Unknown [id number] 1950 Unknown [id number] 1950 Unknown [id number] Medicare Medicare [id number] Medicare [facility] Medicare Advantage [facility] [id number] Social History Date Type Detail Facility Start: 08-19-2023 End: 03-28-2025 Tobacco smoking status NHIS Never smoked tobacco [facility] Start: 09-30-2023 End: 03-22-2024 History of Social function [facility] Start: 09-30-2023 End: 03-22-2024 Tobacco use panel [facility] Start: 1950 Sex assigned at Not on file [facility] Sex Female (finding) [facility] Start: 1950 Sex Assigned At Female F [facility] History of Present illness Narrative 03-22-2024 Waldemar Gustafson MD - 03/22/2024 10:16 AM Adeline Gustafson MD - 03/22/2024 10:16 AM Adeline Gustafson MD - 03/22/2024 9:30 AM EDT Note Date & Type Note Facility 03-22-2024 History of Presen t illness Narrative Associated Problem(s): Essential hypertension, benign (CMS/HCC) BP okay today and monitor PRN. Associated Problem(s): Allergic rhinitis due to pollen Symptoms controlled with medication and continue. Images from the original note were not included. Subjective Patient ID: Louis Balderrama is a 73 y.o. female who presents for No chief complaint on file.. Follow up HTN, allergies, and weight. Patient feels well today. Checking BP PRN and typically controlled. BP okay today. Taking medication daily and tolerating without side effects. Allergies controlled with medication. No congestion or rhinorrhea. No ARROYO or sinus pressure. Ears not plugged or popping. Weight down 11 pounds in the past year. Tries to watch diet and eat healthy. Increased fruits and vegetables. Smaller portions and limits snacking. Tries to limit total daily calories. Due for labs. Review of Systems Respiratory: Negative for cough, shortness of breath and wheezing. Cardiovascular: Negative for chest pain and palpitations. Gastrointestinal: Negative for abdominal pain, diarrhea, nausea and vomiting. Genitourinary: Negative for dysuria. Objective Physical Exam Constitutional: General: She is not in acute distress. Appearance: Normal appearance. HENT: Head: Normocephalic. Right Ear: Tympanic membrane normal. Left Ear: Tympanic membrane normal. Eyes: Extraocular Movements: Extraocular movements intact. Pupils: Pupils are equal, round, and reactive to light. Cardiovascular: Rate and Rhythm: Normal rate and regular rhythm. Heart sounds: No murmur heard. No friction rub. No gallop. Pulmonary: Effort: Pulmonary effort is normal. Breath sounds: Normal breath sounds. No wheezing, rhonchi or rales. Abdominal: General: Bowel sounds are normal. There is no distension. Palpations: Abdomen is soft. Tenderness: There is no abdominal tenderness. There is no guarding or rebound. Musculoskeletal: Cervical back: Neck supple. Right lower leg: No edema. Left lower leg: No edema. Neurological: Mental Status: She is alert. Assessment/Plan Problem List Items Addressed This Visit Essential hypertension, benign (CMS/HCC) - Primary BP okay today and monitor PRN. Relevant Orders Basic metabolic panel Allergic rhinitis due to pollen Symptoms controlled with medication and continue. Dyslipidemia (CMS/HCC) Relevant Orders Lipid panel Prediabetes Relevant Orders Hemoglobin A1c Obesity (BMI 30-39.9) Relevant Orders TSH Encounter for long-term current use of medication Relevant Orders CBC and differential Hepatic function panel documented in this encounter [facility] Evaluation note Note Date & Type Note Facility Evaluation note Diagnosis Essential hypertension, benign (CMS/HCC)- Primary Essential hypertension, benign Seasonal allergic rhinitis due to pollen Obesity (BMI 30-39.9) Dyslipidemia (CMS/HCC) Other and unspecified hyperlipidemia Encounter for long-term current use of medication Prediabetes Other abnormal glucose Body mass index (BMI) 38.0-38.9, adult documented in this encounter [facility] Evaluation note Note Date & Type Note Facility Evaluation note Diagnosis Onset Date Resolution Benign essential hypertension acute March 28, 2025 8:31am Class 1 obesity due to excess calories with serious comorbidity and body ma acute March 28, 2025 8:31am Dyslipidemia acute March 282024 8:31am Encounter for long-term (current) use of medications acute March 28, 2025 8:31am Medicare annual wellness visit, subsequent acute March 28, 2025 8:31am Prediabetes acute March 8:31am [facility] Work Phone: Reason for referral (narrative) Note Date & Type Note Facility Reason for referral (narrative) No reason for referral information available [facility] Work Phone: Summary Purpose Family History No Family History Records FoundNo Family History Records FoundNo Family History Records Found Advance Directives Advance Directive Response Recorded Date/ Time Advance Directives No March 8:26am Chief Complaint and Reason for Visit Reason [...] 2025 8:31am Prediabetes March 28, 2025 8:31am Additional Source Comments INFORMATION SOURCE (unrecogn ized section and content) DATE CREATED AUTHOR 10/12/2022 [facility] DATE CREATED AUTHOR AUTHOR'S ORGANIZ ATION 07/20/2024 [facility] DATE CREATED AUTHOR AUTHOR'S ORGANIZ ATION 09/21/2024 [facility] Care Teams (unrecognized sec tion and content) Loom Fixer Supervisor Relationship Specialty Start Date End Date Waldemar Gustafson MD [address] [place] [phone] PCP - General Family Medicine 08/19/23 Loom Fixer Supervisor Relationship Specialty Start Date End Date Waldemar Gustafson MD [address] [place] [phone] PCP - General Family Medicine 08/19/23 Loom Fixer Supervisor Relationship Specialty Start Date End Date Waldemar Gustafson MD [address] [place] [phone] PCP - General Family Medicine 08/19/23 Team Status: Active Member Role Status Dates Waldemar Gustafson MD Primary Care Provider Active Team Status: Inactive Member Role Status Dates Waldemar Gustafson MD Primary Care Provider Active S tart: March 28, 2025 End: March 28, 2025 Waldemar Gustafson MD Attending Provider Active Star t: March 28, 2025 End: March 28, 2025 Goals (unrecognized section and content) Goals may be documented in a n alternate section FOR RECORDS PERTAINING TO PATIENTS WHO ARE OR HAVE BEEN ENROLLED IN A CHEMICAL DEPENDENCY/SUBSTANCEABUSE PROGRAM, SOME INFORMATION MAY BE OMITTED. This clinical summary was aggregated from multiple sources. Caution should be exercised in using it in the provision of clinical care. This summary normalizes information from multiple sources, and as a consequence, information in this document may materially change the coding, format and clinical context of patient data. In addition, data may be omitted in some cases. CLINICAL DECISIONS SHOULD BE BASED ON THE PRIMARY CLINICAL RECORDS. [facility] [employer] [facility] provides no warranty or guarantee of the accuracy or completeness of information in this document.
[2025-03-28 11:24] LABS: Hematocrit 40.8 % (36.0-48.0); Hemoglobin 13.4 g/dL (12.0-16.0); Immature Granulocytes Abs Auto 0.04 10^3/uL (0.00-0.03); Immature Granulocytes Pct Auto 0.4 % (0.0-0.5); Lymphocytes Absolute Auto 0.9 10^3/uL (1.2-3.8); Mean Corpuscular HGB Conc 32.8 g/dL (29.9-35.2); Mean Corpuscular Hemoglobin 28.8 pg (26.7-34.0); Mean Corpuscular Volume 87.6 fL (81.0-99.0); Platelet Count 246 10^3/uL (150-450); Red Blood Count 4.66 10^6/uL (4.20-5.40); White Blood Count 9.7 10^3/uL (4.0-11.0)
[2025-03-28 11:46] LABS: Alanine Aminotransferase 13 U/L (14-59); Albumin Globulin Ratio 0.9; Albumin Level 3.8 g/dL (3.4-5.0); Alkaline Phosphatase 77 U/L (46-116); Anion Gap 15.0; Aspartate Amino Transferase 9 U/L (15-37); Blood Urea Nitrogen 21.0 mg/dL (7.0-18.0); Calcium 10.0 mg/dL (8.5-10.1); Carbon Dioxide 26.9 mmol/L (21.0-32.0); Chloride 102 mmol/L (98-107); Cholesterol 118 mg/dL (<=200); Estimated GFR (African America >60 (>=60 mL/min/1.73m^2); Estimated GFR (Non-African Ame >60 (>=60 mL/min/1.73m^2); Globulin 4.0 g/dL; Glucose 105 mg/dL (74-106); HDL Cholesterol 55 mg/dL (40-60); Potassium 3.9 mmol/L (3.5-5.1); Sodium 140 mmol/L (136-145); Thyroid Stimulating Hormone 0.851 uIU/mL (0.358-3.740); Total Protein 7.8 g/dL (6.4-8.2); Triglycerides 112 mg/dL (<=150); VLDL CHOLESTEROL 22.4 mg/dL
== END 2025-03-28 10:30 | disposition home or self-care (01) ==
LOC: LAB 10:37
PROVIDERS: PCP Family Medicine; Visit Provider Family Medicine
DX: R73.03 Prediabetes (principal); E66.09 Other obesity due to excess calories; Z68.33 Body mass index [BMI] 33.0-33.9, adult; E66.811 Obesity, class 1; Z79.899 Other long term (current) drug therapy; E78.5 Hyperlipidemia, unspecified
CPT/HCPCS: 36415; 80053; 80061; 83036; 84443; 85025